=== PATIENT | male | born 1965 | race Caucasian/White ===

== ENCOUNTER 2022-01-26 09:38 | Emergency (ER) | payer OTHER, SELFPAY ==
[2022-01-26 09:51] VITALS: BP 145/91; PULSE 72; RESP 18; TEMP 36.6; O2SAT 98; BMI 22.8
[2022-01-26 10:03] VITALS: BP 125/78; PULSE 69; RESP 16; O2SAT 98
--- NOTE | 2022-01-26 10:09 | ECG_ITS ---
[facility] Test Date: 2022-01-26 Pat Name: Kris Estes Department: Room: Gender: Male [employer]: : 1965 Requested By: Tom London Order Number: [id number] Bladimir MD: Adarsh Mcguire M.D. Measurements Intervals Carpio Rate: 67 P: 55 MD: 150 QRS: 41 QRSD: 82 T: 51 QT: 402 QTc: 426 Interpretive Statements SINUS RHYTHM SEPTAL MYOCARDIAL INFARCTION , OF INDETERMINATE AGE [40+ ms Q WAVE IN V1/V2] No previous ECG available for comparison Electronically Signed On 01-26-2022 22:59:10 CDT by Adarsh Mcguire M.D. [email or web address]
--- NOTE | 2022-01-26 10:09 | CT_ITS ---
WS: [id number] CT ABDOMEN AND PELVIS WITH CONTRAST HISTORY: Lower abdominal pain and swelling. TECHNIQUE: Imaging performed of the abdomen and pelvis with IV contrast. Single phase imaging of the abdomen. Coronal and sagittal reformats are submitted. All CT scans at [facility] use at [address] one of these dose optimization techniques: automated exposure control; mA and/or kV adjustment per patient size (includes targeted exams where dose is matched to clinical indication); or iterative re construction. IV CONTRAST: Omnipaque 300; 95 mL IV. Oral contrast: No DLP: 1249.97 mGy.cm COMPARISON: None available. Lower thorax: Lung bases are clear. Heart is normal size. No hiatal hernia. Liver/biliary system: Normal size with no intrahepatic dilatation. Normal enhancement of the portal v ein. Gallbladder: Status post cholecystectomy. Pancreas: Normal size pancreas and pancreatic duct. No adjacent inflammation. Spleen: Normal size spleen. No mass or infarct. Adrenal glands: Normal. Right kidney: Normal size kidney. There is a low-attenuation mass extending laterally from the kidney . This low-attenuation mass measures 2.0 x 1.5 cm and abuts the liver and lateral kidney. This is pro bably a renal cyst. Left kidney: Normal. Aorta: Mild atherosclerosis with no aneurysm. Normal enhancement of the proximal and mid celiac axis and SMA. [place] is patent. Lymphadenopathy: None. Free fluid: None. GI tract: Stomach is not distended. No small bowel obstruction. Moderate fecal retention. The appendi x is normal. Distal colon with overlapping loops. There are numerous diverticula with no definite conor dence for acute diverticulitis. Abdominal wall: Supraumbilical small midline hernia containing omentum only. There is very slight str anding and no mental fat suggesting acute necrosis. Pelvis: Urinary bladder is nondistended. There is a Bui catheter in place. Marked enlargement of th e seminal vesicles with adjacent mesorectal fat stranding. Bones: Negative. CT/CT abdomen pelvis w con* [id number] IMPRESSION: 1. Enlarged seminal vesicles with enhancement and adjacent inflammatory change s. Findings are suggestive of acute seminal vesiculitis which can also be assoc iated with bacterial prostatitis or epididymitis. 2. Normal appendix. 3. Bui catheter in the urinary bladder. 4. Low-attenuation mass inseparable from the liver and RIGHT kidney. This is p robably a minimally complex cyst. Further evaluation with ultrasound could be o btained to confirm cystic nature and evaluate possible origin.
--- NOTE | 2022-01-26 10:09 | US_ITS ---
WS: [id number] TESTICULAR ULTRASOUND HISTORY: RIGHT testicular pain COMPARISON: None available. TECHNIQUE: Real-time and color Doppler imaging or utilized to perform a testicular ultrasound. Right testicle: 3.8 cm x 2.8 cm x 1.9 cm. Normal sized testicle. There is a simple cyst in the superior LEFT testicle measuring 6 x 6 x 5 mm. T here is no nodularity or septation. No color Doppler. Normal color Doppler is present throughout. Systolic and diastolic velocities are both present. No significant hydrocele. Right epididymis: Epididymis is enlarged and vascular. Hypervascular findings throughout the majority of the epididymis. There is a small lobulated cystic epididymal head measuring 6 x 5 x 6 mm. Left testicle: 4.1 cm x 2.2 cm x 2.2 cm. Normal size and echogenicity. No mass or torsion. Normal color Doppler is present throughout. Systolic and diastolic velocities are both present. No significant hydrocele. Left epididymis: Normal epididymis with no increased vascularity. US/US scrotum [id number] IMPRESSION: 1. Acute RIGHT epididymitis. 2. Benign RIGHT intratesticular cyst. 3. Small RIGHT spermatocele.
--- NOTE | 2022-01-26 10:10 | W.ED.GENADLT ---
HPI - General Adult General: Chief complaint: General Medical Stated complaint: lower abdominal swelling Time Seen by Provider: 01/26/22 09:41 Source: patient Mode of arrival: ambulatory Limitations: no limitations History of Present Illness: 56-year-old male comes in complaining of pain in the left testicle and swelling. Pain radiates up into the right inguinal area. He is also had difficulty with urination. He has been unable to void been getting progressively worse he chronically has 2-3 episodes of nocturia per night. He denies any penile discharge or drainage. No trauma or bulges in the groin he did state that few years ago he had a mesh hernia repair in the right inguinal canal. This was an open inguinal hernia repair evidently. Denies any hematuria hematemesis coffee-ground emesis hematochezia. No fever sweats or chills Onset (ago): minute(s) Location: genitals Radiation: non-radiation Severity: moderate Quality: aching Pain Consistency: constant Relieving factors: none Exacerbating factors: none Associated symptoms: Deny chest pain, confusion, cough, diaphoresis, decreased appetite, dyspnea, fevers/chills, headache(s), malaise, nausea, rash, palpitations, seizures, short of breath, syncope, vomiting or weakness Treatments prior to arrival: none Review of Systems Const: Denies: fever(s), chills, malaise or diaphoresis ENMT: Denies: throat pain, ear or mastoid pain, nasal discharge or nasal congestion Card: Denies: chest pain, palpitations or syncope Resp: Denies: dyspnea GI: Reports: abdominal pain; Denies: nausea or vomiting : Reports: difficulty urinating, difficulty starting urination, oliguria and testicular pain; Denies: flank pain, dysuria, urinary frequency or urinary urgency Skin/Breast: Denies: rash or pruritus Neuro: Denies: headache(s) or confusion PFSH ED PFSH: Medical History (Updated 01/26/22 @ 15:52 by Tom Dior DO) BPH (benign prostatic hyperplasia) Diverticulosis Surgical History (Updated 01/26/22 @ 15:52 by Tom Dior DO) H/O hernia repair Social History (Updated 01/26/22 @ 15:52 by Tom Dior DO) Smoking and tobacco status: current every day smoker Physical Exam Const: GENERAL APPEARANCE: cooperative ORIENTATION/CONSCIOUSNESS: Yes awake, Yes oriented to person, Yes oriented to place and Yes oriented to time HENMT: COMMON NORMALS: normocephalic, atraumatic and hearing grossly normal bilaterally HEAD & SCALP: normocephalic and atraumatic Neck/C-Spine: COMMON NORMALS: no JVD Resp: COMMON NORMALS: normal respiratory effort, No retractions, No use of accessory muscles and clear to auscultation bilaterally AUSCULTATION: clear to auscultation bilaterally Cardio: COMMON NORMALS: no JVD, regular rate, regular rhythm and No murmurs present (Cardio) RATE: regular rate RHYTHM: regular rhythm GI: COMMON NORMALS: No hepatosplenomegaly present AUSCULTATION: Yes normoactive bowel sounds PALPATION: Yes Tenderness to palpation present (GI) Details: RLQ, No Guarding due to palpation present (GI), Yes No hepatosplenomegaly present and Yes Bladder palpation abnormal Details: distended and tender PERCUSSION: Other (Pain with percussion of McBurney's point) : BLADDER/KIDNEY EXAM: Yes Bladder palpation abnormal and No CVA tenderness SCROTUM: Yes testes descended bilaterally, Yes Scrotal tenderness present (Right testicle), No edematous and No scrotal swelling OTHER: Fullness in the right inguinal canal but no definitive hernia is palpable. Back/Pelvis: GENERAL BACK: No CVA tenderness Extremity: COMMON NORMALS: normal to inspection, capillary refill normal, no clubbing, cyanosis or edema, no calf tenderness and no pedal edema Neuro: SENSORIUM/ORIENTATION: Yes oriented to person, Yes oriented to place and Yes oriented to time Skin: COMMON NORMALS: no rashes or lesions noted GENERAL SKIN EXAM: no rashes or lesions noted Course Vital Signs: Vital signs: Vital Signs Temperature 98 F 01/26/22 09:51 Pulse Rate 69 01/26/22 12:52 Respiratory Rate 16 01/26/22 10:55 Blood Pressure 131/98 01/26/22 12:52 Pulse Oximetry 98 01/26/22 12:[address] [facility] - General Adult Medical Decision Making Epididymitis on ultrasound and some question of prostatitis. He has some BPH as we will start him on tamsulosin we will to get a Bui in him drained about 800 mL of urine after the Bui was placed we will send him home with a leg bag have him follow-up with Dr. Payne. Medical Records I reviewed the patient's medical records. Lab Data I reviewed the patient's lab results. : 01/26/22 10:12 01/26/22 10:12 Radiology Impressions Abdomen/Pelvis CT 01/26/22 10:09 IMPRESSION: 1. Enlarged seminal vesicles with enhancement and adjacent inflammatory changes. Findings are suggestive of acute seminal vesiculitis which can also be associated with bacterial prostatitis or epididymitis. 2. Normal appendix. 3. Bui catheter in the urinary bladder. 4. Low-attenuation mass inseparable from the liver and RIGHT kidney. This is probably a minimally complex cyst. Further evaluation with ultrasound could be obtained to confirm cystic nature and evaluate possible origin. Scrotum Ultrasound 01/26/22 10:09 IMPRESSION: 1. Acute RIGHT epididymitis. 2. Benign RIGHT intratesticular cyst. 3. Small RIGHT spermatocele. Laboratory Results WBC 9.7 10^3/uL (4.0-10.0) 01/26/22 10:12 RBC 4.93 10^6/uL (4.1-5.3) 01/26/22 10:12 Hgb 15.2 g/dL (11.7-16.6) 01/26/22 10:12 Hct 45.4 % (42.0-52.0) 01/26/22 10:12 MCV 92.1 fl (80-94) 01/26/22 10:12 MCH 30.8 pg (28.0-34.0) 01/26/22 10:12 MCHC 33.5 g/dL (30.0-36.0) 01/26/22 10:12 RDW 12.7 % (12.1-15.1) 01/26/22 10:12 Plt Count 334 10^3/cmm (130-400) 01/26/22 10:12 MPV 9.6 fL (7.4-10.4) 01/26/22 10:12 Neut % (Auto) 65.5 % 01/26/22 10:12 Lymph % (Auto) 23.9 % 01/26/22 10:12 [place] % (Auto) 6.3 % 01/26/22 10:12 Eos % (Auto) 3.3 % 01/26/22 10:12 Baso % (Auto) 0.7 % 01/26/22 10:12 Neut # (Auto) 6.37 10^3/uL (1.8-7.7) 01/26/22 10:12 Lymph # (Auto) 2.3 10^3/uL (0.8-4.8) 01/26/22 10:12 [place] # (Auto) 0.6 10^3/uL (0.2-0.9) 01/26/22 10:12 Eos # (Auto) 0.3 10^3/uL (0.0-0.8) 01/26/22 10:12 Baso # (Auto) 0.1 10^3/uL (0.0-0.1) 01/26/22 10:12 Nucleated RBC % (auto) 0 % 01/26/22 10:12 Nucleated RBCs # 0.0 /100WBC 01/26/22 10:12 Sodium 135 mmol/L (136-145) L 01/26/22 10:12 Potassium 3.9 mmol/L (3.5-5.1) 01/26/22 10:12 Chloride 100 mmol/L (98-107) 01/26/22 10:12 Carbon Dioxide 24 mmol/L (22-29) 01/26/22 10:12 Anion Gap 14.9 (5-19) 01/26/22 10:12 BUN 9 mg/dL (6-20) 01/26/22 10:12 Creatinine 0.8 mg/dL (0.7-1.2) 01/26/22 10:12 GFR Calculation 100.0 mL/min (90-130) 01/26/22 10:12 Glucose 125 mg/dL (65-115) H 01/26/22 10:12 Calculated Osmolality 280 mOsm/kg (285-295) L 01/26/22 10:12 Lactic Acid 1.8 mmol/L (0.5-2.2) 01/26/22 10:12 Calcium 9.9 mg/dL (8.5-10.5) 01/26/22 10:12 Total Bilirubin 0.2 mg/dL (0.15-1.2) 01/26/22 10:12 AST 15 U/L (0-40) 01/26/22 10:12 ALT 14 U/L (0-41) 01/26/22 10:12 Alkaline Phosphatase 74 IU/L (40-130) 01/26/22 10:12 Total Protein 6.9 g/dL (6.6-8.7) 01/26/22 10:12 Albumin 4.6 g/dL (3.5-5.2) 01/26/22 10:12 Globulin 2.3 g/dL (1.3-4.6) 01/26/22 10:12 Urine Color Colorless (Yellow) 01/26/22 10:45 Urine Appearance Clear (CLEAR) 01/26/22 10:45 Urine pH 6 (5-7) 01/26/22 10:45 Ur Specific [place] 1.005 (1.005-1.030) 01/26/22 10:45 Urine Protein Neg (Negative) 01/26/22 10:45 Urine Glucose (UA) Norm (Normal) 01/26/22 10:45 Urine Ketones Negative (Negative) 01/26/22 10:45 Urine Blood Neg (Negative) 01/26/22 10:45 Urine Nitrate Negative (Negative) 01/26/22 10:45 Urine Bilirubin Neg (Negative) 01/26/22 10:45 Urine Urobilinogen Norm mg/dL (Negative) 01/26/22 10:45 Ur Leukocyte Esterase Negative (Negative) 01/26/22 10:45 Discharge Plan Discharge Clinical Impression: Acute prostatitis, Epididymitis, Acute urinary retention Prescriptions: New tamsulosin 0.4 mg capsule 0.4 mg PO DAILY Qty: 30 0RF Cipro 500 mg tablet 500 mg PO BID Qty: 20 0RF Discharge Orders: Discharge ED (Routine); Ordered 01/26/22 Ordered By: Tom Dior Referrals: David Magallanes MD [Primary Care Provider] - Discharge Diet: Usual diet Discharge Activity: Increase activity as tolerated Patient Instructions: Opioid Safety Activity Restrictions/Additional Instructions: Case management make arrangements for you to follow-up with Dr. Payne. He will also discuss with you discontinuing the leg bag. Coding Level of Care Code ED Supervisor Claims for Yanig Fwd Exam Comprehensive
[2022-01-26 10:33] LABS: Basophils # 0.1 10^3/uL (0.0-0.1); Basophils % 0.7 %; Eosinophils # 0.3 10^3/uL (0.0-0.8); Eosinophils % 3.3 %; Hematocrit 45.4 % (42.0-52.0); Hemoglobin 15.2 g/dL (11.7-16.6); Lymphocytes # 2.3 10^3/uL (0.8-4.8); Lymphocytes % 23.9 %; Mean Corpuscular HGB Conc 33.5 g/dL (30.0-36.0); Mean Corpuscular Hemoglobin 30.8 pg (28.0-34.0); Mean Corpuscular Volume 92.1 fl (80-94); Mean Platelet Volume 9.6 fL (7.4-10.4); Monocytes # 0.6 10^3/uL (0.2-0.9); Monocytes % 6.3 %; Neutrophils # 6.37 10^3/uL (1.8-7.7); Neutrophils % 65.5 %; Nucleated Red Blood Cells % 0 %; Platelet Count 334 10^3/cmm (130-400); Red Blood Count 4.93 10^6/uL (4.1-5.3); Red Cell Distribution Width 12.7 % (12.1-15.1); White Blood Count 9.7 10^3/uL (4.0-10.0)
[2022-01-26] MEDS: ondansetron 2 mg/ML SDV 2 mL 4 MG IVP (10:37)
[2022-01-26] MEDS: sodium chlor 0.9% + KCl 20 mEq 20 MEQ/1,000 ML BAG 125 MEQ IV (10:37)
[2022-01-26] MEDS: morphine 4 mg/mL SDV 1 mL IVP (10:37)
[2022-01-26 10:55] VITALS: BP 131/98; PULSE 64; RESP 16; O2SAT 97
[2022-01-26 11:05] LABS: Add Urine Microscopic? NO; Charge for UA Resulting for Rev
[2022-01-26 11:05] LABS: Alanine Aminotransferase 14 U/L (0-41); Albumin Level 4.6 g/dL (3.5-5.2); Alkaline Phosphatase 74 IU/L (40-130); Anion Gap 14.9 (5-19); Aspartate Amino Transferase 15 U/L (0-40); Blood Urea Nitrogen 9 mg/dL (6-20); Calcium 9.9 mg/dL (8.5-10.5); Carbon Dioxide 24 mmol/L (22-29); Chloride 100 mmol/L (98-107); Globulin 2.3 g/dL (1.3-4.6); Glucose 125 mg/dL (65-115); Osmolality Calculated 280 mOsm/kg (285-295); Potassium 3.9 mmol/L (3.5-5.1); Sodium 135 mmol/L (136-145); Total Bilirubin 0.2 mg/dL (0.15-1.2); Total Protein 6.9 g/dL (6.6-8.7)
[2022-01-26 11:08] LABS: Lactic Sepsis W/Reflex 1.8 mmol/L (0.5-2.2)
[2022-01-26 11:21] LABS: Bilirubin Urine Neg (Negative); Blood Urine Neg (Negative); Glucose Urine UA Norm (Normal); Ketones Urine Negative (Negative); Leukocyte Esterase Urine Negative (Negative); Nitrate Urine Negative (Negative); Protein Urine Neg (Negative); Specific Gravity, Urine 1.005 (1.005-1.030); Urine Appearance Clear (CLEAR); Urine Color Colorless (Yellow); Urobilinogen Urine Norm (Negative); pH Urine 6 (5-7)
[2022-01-26] MEDS: iohexol 300 mg/mL 100 mL Btl IV (11:28)
[2022-01-26 12:52] VITALS: BP 131/98; PULSE 69; O2SAT 98
--- NOTE | 2022-01-27 11:50 | DCPLANNER ---
Addendum entered by Brigette Holley 02/10/22 21:09: Patient had a follow up appointment scheduled for 02.05.[address] Payne - patient did attend appointment. Addendum entered by Brigette Holley 02/04/22 08:36: Patient has a follow up appointment scheduled for , February 05, 2022 at 9:[address] Payne. Clinic will call patient with appointment information. Addendum entered by Brigette Holley 01/27/22 11:55: Patient has [employer] insurance, corrections caseworker sent patients information to January with [employer] [facility] the community for the authorization to be started. Original Note: manager care had message to schedule a follow up appointment for patient with Dr. Payne, urology. manager care sent patients information to the front staff at urology for review. Patients information will be printed and reviewed. Clinic will call patient with appointment information.
== END 2022-01-26 12:55 | disposition home or self-care (01) ==
PROVIDERS: Emergency Provider Family Medicine; PCP Family Medicine
DX: N41.0 Acute prostatitis (principal); N45.1 Epididymitis; R33.9 Retention of urine, unspecified
CPT/HCPCS: 51702; 74177; 76870; 80053; 81003; 83605; 85025; 87491; 87591; 93005; 96365; 96375; 99284; J2270; J2405; Q9967

== ENCOUNTER → 2022-02-05 08:22 | Outpatient (BNVA) | payer OTHER, SELFPAY | PROVIDERS: PCP Family Medicine; Visit Provider Urology | DX: R33.8 Other retention of urine (principal) | CPT/HCPCS: 81003 ==

== ENCOUNTER 2023-09-06 06:01 | Outpatient (CLI) | payer OTHER, SELFPAY ==
--- NOTE | 2023-09-06 06:07 | US_ITS ---
WS: [id number] RENAL ULTRASOUND HISTORY: HX OF CYST COMPARISON: CT 01/26/2022 TECHNIQUE: 2-D and color Doppler imaging of the kidney submitted. Right kidney: 10.7 cm x 5.5 cm x 4.4 cm. Cortex: 1.1 cm Normal size kidney. Exophytic cyst in the mid kidney measures 1.2 x 1.7 x 1.2 cm. No solid mass. Left kidney: 11.0 cm x 4.6 cm x 6.2 cm. Cortex: 1.2 cm Normal echogenicity with no hydronephrosis or mass. Aorta: Normal. Urinary Bladder: Normal distention. IMPRESSION: 1. Simple cyst mid RIGHT kidney, 1.2 x 1.7 x 1.2 cm. 2. No solid renal mass and no obstruction.
== END 2023-09-06 06:02 | disposition home or self-care (01) ==
LOC: RAD 06:01
PROVIDERS: PCP Family Medicine; Visit Provider Family Medicine
DX: N28.1 Cyst of kidney, acquired (principal)
CPT/HCPCS: 76770

== ENCOUNTER 2024-09-08 14:33 | Outpatient (CLI) | payer OTHER, SELFPAY ==
--- NOTE | 2024-09-08 14:36 | XR_ITS ---
WS: [id number] DEXA (DUAL ENERGY X-RAY ABSORPTIOMETRY) Bone mineral density was performed using a rimidi machine. HISTORY: ?OSTEOPENIA COMPARISON: None available. Lumbar spine BMD (L1-L4): 1.091 g/cm2 T score: -1.1 Z score: -0.8 Total hip BMD: Left: 0.905 g/cm2. T score: -1.4 Z score: -1.0 Right: 0.900 g/cm2. T score: -1.4 Z score: -1.0 10 year probability of a major osteoporotic fracture is 6.7%. Male patient. XR/XR DEXA axial skeleton* [id number] IMPRESSION: OSTEOPENIA.
== END 2024-09-08 14:34 | disposition home or self-care (01) ==
LOC: RAD 14:34
PROVIDERS: PCP Family Medicine; Visit Provider Family Medicine
DX: Z13.820 Encounter for screening for osteoporosis (principal); M81.0 Age-related osteoporosis without current pathological fracture; M85.80 Other specified disorders of bone density and structure, unspecified site
CPT/HCPCS: 77080

== ENCOUNTER → 2025-08-29 12:19 | Outpatient (BNVA) | payer OTHER, SELFPAY | PROVIDERS: PCP Family Medicine; Visit Provider Surgery | DX: K43.9 Ventral hernia without obstruction or gangrene (principal); R03.0 Elevated blood-pressure reading, without diagnosis of hypertension | CPT/HCPCS: 99204 ==

== ENCOUNTER 2025-09-05 13:52 | Outpatient (CLI) | payer OTHER, SELFPAY ==
[2025-09-05] MEDS: iohexol 350 mg/mL 500 mL Btl (per mL) PO (14:25)
--- NOTE | 2025-09-05 15:00 | CT_ITS ---
WS: [id number] CT abdomen pelvis w con* [id number] REASON FOR EXAM: ventral incisonal hernia IV CONTRAST ADMINISTERED: 1350 mL of Omnipaque 350. TOTAL EXAM DLP: 445.[address] scans at [facility] use at least one of these dose optimization techniques: automated exposure control; mA and/or kV adjustment per patient size (includes targeted exams where dose is matched to clinical indication); or iterative reconstruction. COMPARISON EXAMINATION: 01/26/2022. TECHNIQUE: Multiple axial images post intravenous contrast enhancement portal venous phase. Oral contrast was administered. The oral contrast reached the sigmoid colon. FINDINGS: The liver and spleen are unremarkable. The pancreas is moderately fatty infiltrated. The degree of fatty infiltration is increased since previous examination. There is a defect in the upper abdominal wall at the midline, 4 cm in transverse dimensions and 5 cm in length. There is herniation of fat and small blood vessels through the defect. No bowel or other structure within the hernia. The adrenals are unremarkable. Kidneys are unremarkable. No abdominal mass, adenopathy, focal fluid collection, or free fluid. Degenerative spondylosis at L5-S1. No significant vertebral body abnormality in the lumbar spine. PELVIS: No mass, adenopathy, focal fluid collection, or free fluid. Diverticulosis of the sigmoid colon without diverticulitis. No significant abnormality of the bony pelvis. CT/CT abdomen pelvis w con* [id number] IMPRESSION: Midline ventral abdominal wall hernia with fat herniation and no bowel.
[2025-09-05] MEDS: iohexol 350 mg/mL 500 mL Btl (per mL) IV (15:16)
== END 2025-09-05 13:53 | disposition home or self-care (01) ==
LOC: RAD 13:53
PROVIDERS: PCP Family Medicine; Visit Provider Surgery
DX: K43.2 Incisional hernia without obstruction or gangrene (principal); K46.9 Unspecified abdominal hernia without obstruction or gangrene
CPT/HCPCS: 74177

== ENCOUNTER → 2025-09-19 08:42 | Outpatient (BNVA) | payer OTHER, SELFPAY | PROVIDERS: PCP Family Medicine; Visit Provider Surgery | DX: Z51.89 Encounter for other specified aftercare (principal); R03.0 Elevated blood-pressure reading, without diagnosis of hypertension | CPT/HCPCS: 99213 ==